=== PATIENT | male | born 1980 | race Caucasian/White ===

== ENCOUNTER 2018-02-24 22:56 | Emergency (ER) | payer OTHER ==
[2018-02-24 23:09] VITALS: BP 117/66
--- NOTE | 2018-02-25 00:16 | ED Physician Documentation ---
History of Present Illness - Stated complaint Stated Complaint: BODY SLAM/FEVER - Chief complaint Chief Complaint: Ext Problem - History obtained from History obtained from: Patient - History of Present Illness Timing: Yesterday Improved by: rest Worsened by: movement - Additonal information Additional information: patient has two complaints. First, he was playing softball yesterday and collided with another player; he had sudden onset of mild right sided thoracic back pain, which has gradually worsened and is now severe. This is chief complaint. He also has left wrist pain due to this collision.left wrist pain due to this collision. His other complaint is fever Tmax 100 with chills and sweats since earlier today Review of Systems Constitutional: reports: Fever (Tmax 100), Chills, Myalgias, Sweats Throat: denies: Sore throat Cardiac: reports: Reviewed and negative Respiratory: reports: Cough (nonproductive) GI: reports: Reviewed and negative : denies: Dysuria, Frequency Musculoskeletal: reports: Back pain, Joint pain (left wrist), Joint swelling ( left wrist). denies: Neck pain Neurologic: denies: Headache, Head injury PD PAST MEDICAL HISTORY - Past Medical History Past Medical History: No Cardiovascular: None Respiratory: None Neuro: None Endocrine/Autoimmune: None GI: None : None HEENT: None Psych: None Musculoskeletal: None Derm: None - Past Surgical History Past Surgical History: No - Present Medications Home Medications: Ambulatory Orders Medication Instructions Recorded Confirmed Azithromycin [Zithromax] 250 mg PO DAILY #4 tablet 02/25/18 Cyclobenzaprine [Flexeril] 10 mg PO TID PRN #20 tablet 02/25/18 HYDROcod/ACETAM 5/325 [[place] 5/325] 1 - 2 ea PO Q6H PRN #15 tablet 02/25/18 diazePAM [Valium] 5 - 10 mg PO TID PRN #15 tablet 02/25/18 - Allergies Allergies/Adverse Reactions: Allergies Allergy/AdvReac Type Severity Reaction Status Date / Time No Known Drug Allergies Allergy Verified 02/25/18 10:16 - Social History Does the pt smoke?: Yes Smoking Status: Current every day smoker Does the pt drink ETOH?: Yes Does the pt have substance abuse?: No - Immunizations Immunizations are current?: Yes - POLST Patient has POLST: No PD ED PE NORMAL - Vitals Vital signs reviewed: Yes - General General: Alert and oriented X 3, No acute distress, Well developed/nourished - HEENT HEENT: Moist mucous membranes, Pharynx benign - Neck Neck: Supple, no meningeal sign - Cardiac Cardiac: RRR, No murmur - Respiratory Respiratory: No respiratory distress, Clear bilaterally - Back Back: No CVA TTP, No spinal TTP - Derm Derm: Normal color, Warm and dry - Extremities Extremities: No tenderness to palpate - Neuro Neuro: Alert and oriented X 3 PD ED PE EXPANDED - Extremities Extremities: Limited ROM, Swelling, Left wrist. No: Tenderness Results - Vitals Vitals: Oxygen O2 Source Room air - Rads (name of study) chest xray Radiology: Prelim report reviewed, See rad report PD MEDICAL DECISION MAKING - ED course Complexity details: reviewed results, re-evaluated patient, considered differential, d/w patient Departure - Departure Disposition: 01 Home, Self Care Clinical Impression: Pleurisy, Left wrist sprain, Back sprain Condition: Good Instructions: ED Neck Back Pain General, ED Chest Pain Pleurisy, ED Sprain Wrist Follow-Up: ZAIDA Royal [Provider Group] Prescriptions: Azithromycin [Zithromax] 250 mg PO DAILY #4 tablet Cyclobenzaprine [Flexeril] 10 mg PO TID PRN #20 tablet PRN Reason: Spasms HYDROcod/ACETAM 5/325 [[place] 5/325] 1 - 2 ea PO Q6H PRN #15 tablet PRN Reason: Pain Discharge Date/Time: 02/25/18 02:19
[2018-02-25] MEDS ORDERED: CYCLOBENZAPRINE 10 MG TABLET PO STA (00:40)
[2018-02-25] MEDS ORDERED: HYDROcod/ACETAM 5/325 MG TABLET PO STA (00:40)
--- NOTE | 2018-02-25 01:22 | XRAY Preliminary Report ---
Exam: XR CHEST 2 VIEW X-RAY IMPRESSION: Retrocardiac airspace opacity, likely right lower lobe scarring/atelectasis. Correlate to exclude pneumonia. [facility] SITE ID: [id number]
--- NOTE | 2018-02-25 01:31 | XRAY Report ---
EXAM: CHEST RADIOGRAPHY EXAM DATE: 02/25/2018 12:57 AM. CLINICAL HISTORY: Right thoracic pain, pleuritic. COMPARISON: None. TECHNIQUE: 2 views. FINDINGS: Lungs/Pleura: No gross pneumothorax or significant effusion. There is a retrocardiac airspace opacity which appears to be in the right lower lobe, probably scarring/atelectasis. Mediastinum: Heart and mediastinal contours are unremarkable. Other: None. IMPRESSION: Retrocardiac airspace opacity, likely right lower lobe scarring/atelectasis. Correlate to exclude pneumonia. [facility] Referring Provider Line: [phone] SITE ID: [id number]
[2018-02-25] MEDS ORDERED: AZITHROMYCIN 250 MG TABLET PO STA (02:08)
== END 2018-02-25 02:19 | disposition home or self-care (01) ==
LOC: ED 22:56
DX: R09.1 Pleurisy (principal); S63.502A Unspecified sprain of left wrist, initial encounter; S23.3XXA Sprain of ligaments of thoracic spine, initial encounter; W51.XXXA Accidental striking against or bumped into by another person, initial encounter; Y93.64 Activity, baseball; F17.200 Nicotine dependence, unspecified, uncomplicated; M62.830 Muscle spasm of back
CPT/HCPCS: 71046; 96372; 99283; A9270

== ENCOUNTER 2018-02-25 10:09 | Emergency (ER) | payer OTHER ==
--- NOTE | 2018-02-25 10:40 | ED Physician Documentation ---
History of Present Illness - Stated complaint Stated Complaint: BACK PAIN - Chief complaint Chief Complaint: Back Pain - History obtained from History obtained from: Patient, Family - History of Present Illness Timing: How many days ago (2) Pain level max: 8 Pain level now: 7 Improved by: rest Worsened by: movement - Additonal information Additional information: Patient states that he collided with another player during softball 2 days ago. States increasing back pain since that time. States vicodin helped when he was here last night. Has not taken anything today. Review of Systems Constitutional: reports: Fever (Tmax 100 at home). denies: Chills Ears: denies: Ear pain Nose: denies: Rhinorrhea / runny nose, Congestion Throat: denies: Sore throat Respiratory: reports: Cough GI: denies: Abdominal Pain, Nausea, Vomiting, Diarrhea : denies: Dysuria Skin: denies: Rash, Lesions Musculoskeletal: denies: Neck pain Neurologic: denies: Headache PD PAST MEDICAL HISTORY - Past Medical History Cardiovascular: None Respiratory: None Neuro: None Endocrine/Autoimmune: None GI: None : None HEENT: None Psych: None Musculoskeletal: None Derm: None - Past Surgical History Past Surgical History: No - Present Medications Home Medications: Ambulatory Orders Medication Instructions Recorded Confirmed Azithromycin [Zithromax] 250 mg PO DAILY #4 tablet 02/25/18 Cyclobenzaprine [Flexeril] 10 mg PO TID PRN #20 tablet 02/25/18 HYDROcod/ACETAM 5/325 [[place] 5/325] 1 - 2 ea PO Q6H PRN #15 tablet 02/25/18 diazePAM [Valium] 5 - 10 mg PO TID PRN #15 tablet 02/25/18 - Allergies Allergies/Adverse Reactions: Allergies Allergy/AdvReac Type Severity Reaction Status Date / Time No Known Drug Allergies Allergy Verified 02/25/18 10:16 - Social History Does the pt smoke?: Yes Smoking Status: Current every day smoker Does the pt drink ETOH?: Yes Does the pt have substance abuse?: No - Immunizations Immunizations are current?: Yes - POLST Patient has POLST: No PD ED PE NORMAL - Vitals Vital signs reviewed: Yes - General General: Alert and oriented X 3 - HEENT HEENT: Moist mucous membranes - Neck Neck: Supple, no meningeal sign - Cardiac Cardiac: RRR - Respiratory Respiratory: No respiratory distress, Clear bilaterally - Abdomen Abdomen: Soft, Non tender, Non distended - Back Back: No spinal TTP, Other (No midline tenderness to palpation or percussion, but does have diffuse spasm from the midthoracic down to the mid lumbar area on the right side.) - Derm Derm: Warm and dry - Extremities Extremities: No edema, No calf tenderness / cord - Neuro Neuro: Alert and oriented X 3 - Psych Psych: Normal mood, Normal affect Results - Vitals Vitals: Vital Signs - 24 hr 02/25/18 02/25/18 10:13 12:05 Temperature 37 C 37.6 C H Heart Rate 99 84 Respiratory 16 16 Rate Blood Pressure 114/70 126/71 O2 Saturation 98 96 Oxygen O2 Source Room air PD MEDICAL DECISION MAKING - ED course Complexity details: reviewed old records (Prior ED visit), reviewed results, re- evaluated patient, considered differential, d/w patient, d/w family ED course: Patient is a 37-year-old male who presents to the emergency department with what appears to be back muscle spasms after colliding with another player during softball 2 days ago. When evaluating him he could see several moments where the spasm would catch him and take his breath away. Pain improved significantly with Toradol and Valium. He feels much better and would like to try going home on the pain medications as previously prescribed with the addition of Valium. I think this is reasonable. No evidence of acute spinal abnormality. No evidence of cauda equina, epidural abscess. No pneumothorax or hemothorax on chest x-ray. No evidence of pulmonary embolus. Patient and family counseled regarding signs and symptoms for which I believe and urgent re- evaluation would be necessary. Patient with good understanding of and agreement to plan and is comfortable going home at this time This document was made in part using voice recognition software. While efforts are made to proofread this document, sound alike and grammatical errors may occur. Departure - Departure Disposition: 01 Home, Self Care Clinical Impression: Back spasm Condition: Good Instructions: ED Spasm Back No Trauma Follow-Up: MONSTER LEYVA [Primary Care Provider] - Within 1 week Prescriptions: diazePAM [Valium] 5 - 10 mg PO TID PRN #15 tablet PRN Reason: Spasms Comments: This should improve over the next few days. Return if you worsen. Do not drive or operate heavy machinery on while on valium or vicodin. Discharge Date/Time: 02/25/18 12:49
[2018-02-25] MEDS ORDERED: KETOROLAC 60 MG/2 ML VIAL IM STA (10:45)
[2018-02-25] MEDS ORDERED: diazePAM INJ 5 MG/ML SYRINGE IM STA (10:50)
[2018-02-25] MEDS ORDERED: diazePAM 5 MG TABLET PO STA ×2 (11:15→11:51)
[2018-02-25] MEDS ORDERED: oxyCODONE 5 MG TABLET PO STA (11:51)
[2018-02-25 12:07] VITALS: BP 126/71
== END 2018-02-25 12:49 | disposition home or self-care (01) ==
LOC: ED 10:09
DX: M62.830 Muscle spasm of back (principal); F17.200 Nicotine dependence, unspecified, uncomplicated
CPT/HCPCS: 99283